=== PATIENT | female | born 1935 | race Caucasian/White ===

== ENCOUNTER 2018-12-19 08:08 | Emergency (ER) | payer MEDICARE ==
[~2018-12-19] VITALS: Ht 170.2 cm; Wt 61.2 kg
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
[~2018-12-19 08:08] MED LIST: NKM
[2018-12-19 08:11] VITALS: BP 151/84
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
[2018-12-19] MEDS ORDERED: Isovue-300 100ml vial INJ PRN (08:15)
--- NOTE | 2018-12-19 08:20 | NUR ---
ED Nurse Note: Collected blood specimen then sent. manufacturing technologist at the bed side for xray.
[2018-12-19 08:35] LABS: EOSINOPHILS % (AUTO) 1.4 % (0.0-3.0); HEMATOCRIT 43.1 % (37.0-47.0); HEMOGLOBIN 14.2 G/DL (12.0-16.0); LYMPHOCYTES % (AUTO) 44.6 % (20.0-45.0); MEAN CORPUSCULAR VOLUME 88 FL (80-99); MONOCYTES % (AUTO) 6.3 % (1.0-10.0); NEUTROPHILS % (AUTO) 45.6 % (45.0-75.0); PLATELET COUNT 201 K/UL (150-450); RED BLOOD COUNT 4.87 M/UL (4.20-5.40); RED CELL DISTRIBUTION WIDTH 11.9 % (11.6-14.8); WHITE BLOOD COUNT 4.4 K/UL (4.8-10.8)
--- NOTE | 2018-12-19 08:37 | NUR ---
ED Nurse Note: Pt taken down to CT.
[2018-12-19 08:41] LABS: ANION GAP 5 mmol/L (5-15); BLOOD UREA NITROGEN 28 mg/dL (7-18); CALCIUM 9.2 MG/DL (8.5-10.1); CARBON DIOXIDE 30 MMOL/L (21-32); CHLORIDE 101 MMOL/L (98-107); CREATININE 0.8 MG/DL (0.55-1.30); POTASSIUM 3.5 MMOL/L (3.5-5.1); SODIUM 136 MMOL/L (136-145)
[2018-12-19 08:44] LABS: INR 0.9 (0.9-1.1)
[2018-12-19 08:53] LABS: ALANINE AMINOTRANSFERASE 33 U/L (12-78); ALBUMIN 3.9 G/DL (3.4-5.0); ALBUMIN/GLOBULIN RATIO 1.1 (1.0-2.7); ALKALINE PHOSPHATASE 93 U/L (46-116); ASPARTATE AMINO TRANSFERASE 30 U/L (15-37); BILIRUBIN,TOTAL 0.7 MG/DL (0.2-1.0); CHOLESTEROL 222 MG/DL (< 200); CKMB 6.7 NG/ML (0.0-3.6); CREATINE KINASE 336 U/L (26-308); HDL CHOLESTEROL 65 MG/DL (40-60); TRIGLYCERIDES 106 MG/DL (30-150)
--- NOTE | 2018-12-19 08:58 | Diagnostic Imaging Report ---
Indication: Shortness of breath Technique: One view of the chest Comparison: none Findings: There is some atelectasis at the left lung base. Lungs and pleural spaces are otherwise clear. The heart is borderline enlarged. Aorta is tortuous and ectatic. Impression: Borderline cardiomegaly Left basilar atelectasis. No acute process otherwise
--- NOTE | 2018-12-19 09:00 | NUR ---
ED Nurse Note: Pt came back from CT. VSS.
--- NOTE | 2018-12-19 09:09 | NUR ---
ED Nurse Note: [employer] at the bed side.
--- NOTE | 2018-12-19 09:30 | NUR ---
ED Nurse Note: Neck collar in place.
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
[2018-12-19 10:11] VITALS: BP 145/76
[2018-12-19] MEDS: Morphine Sulfate 2mg/ml Inj(IV/IM USE ONLY) IVP ONE ×2 (10:22→10:27)
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
[2018-12-19 12:10] VITALS: BP 138/75
[2018-12-19] MEDS ORDERED: D5 1/2NS w/KCl 20mEq 1,000 ML IV SCH (12:15)
--- NOTE | 2018-12-19 12:15 | NUR ---
ED Nurse Note: Pt was informed not to eat or drink per Dr Lowe order.
--- NOTE | 2018-12-19 12:37 | NUR ---
ED Nurse Note: Pt is awake and alert and speaks in full sentences. Family member at the bed side. Waiting for transfer.
[2018-12-19 13:20] VITALS: BP 117/59
[2018-12-19 13:21] VITALS: BP 136/77
--- NOTE | 2018-12-19 13:21 | NUR ---
ED Nurse Note: Report given to Zeke JAUREGUI of [facility] and [facility] ambulance and pt transferred with belongings sent.
== END 2018-12-19 13:21 | disposition short-term general hospital (02) ==
LOC: EDBD 08:08 → EMR 08:40
DX: S20.219A Contusion of unspecified front wall of thorax, initial encounter (principal); S09.90XA Unspecified injury of head, initial encounter; S80.211A Abrasion, right knee, initial encounter; V43.52XA Car driver injured in collision with other type car in traffic accident, initial encounter; Y92.410 Unspecified street and highway as the place of occurrence of the external cause; M48.02 Spinal stenosis, cervical region; K57.30 Diverticulosis of large intestine without perforation or abscess without bleeding
CPT/HCPCS: 36415; 70450; 71045; 71260; 72125; 74177; 80053; 80061; 82550; 82553; 83880; 84484; 85025; 85610; 85730; 86850; 86900; 86901; 93005; 96365; 96366; 99285; J7040; Q9967